=== PATIENT | male | born 1935 | race Caucasian/White ===

== ENCOUNTER 2017-09-02 10:13 | Day surgery (SDC) | payer MEDICARE, BC ==
[2017-09-02] MEDS ORDERED: PROPOFOL 10 MG/ML VIAL IV ONE (10:14)
[2017-09-02] MEDS ORDERED: FENTANYL PF 100MCG/2ML VIAL IV ONE (10:14)
[2017-09-02] MEDS ORDERED: LIDOCAINE 2% MDV (20MG/ML) 20ML VIAL IV ONE (10:14)
--- NOTE | 2017-09-03 13:50 | Operative Note ---
DATE OF SURGERY: 09/02/2017 OPERATION: ESOPHAGOGASTRODUODENOSCOPY with biopsy. INDICATION: Gastroesophageal reflux disease with "sore throat." The patient denies any dysphagia or odynophagia. He does experience intermittent coughing with eating. Upper endoscopy is performed at this time for further evaluation. ANESTHESIA: Intravenous sedation was administered by the department of anesthesiology and included Diprivan, fentanyl, and lidocaine titrated to effect. PROCEDURE: Following informed consent from this alert individual, including a discussion of the risks and benefits of the procedure and an opportunity for the patient to ask questions, the patient was in the left lateral decubitus position. The Olympus VEX132 video endoscope was inserted into the esophagus without resistance. The proximal esophagus had a normal appearance with normal folds and distensibility. The mid and distal esophagus likewise was free from changes. There were no ulcerations or erosions noted. There was a 3 cm hiatal hernia visualized without mucosal changes within. The subdiaphragmatic stomach was entered and found to be unremarkable except for some mild streak-like erythema extending approximately from the pylorus. No ulcerations or erosions were seen. Biopsies from the stomach were obtained to assess for Helicobacter pylori and check histology. The pylorus was patent. The duodenal bulb, sweep and descending duodenum were examined in a serial fashion and found to be normal. The endoscope was then withdrawn back into the body of the stomach. Retroflexion accomplished following air insufflation failed to demonstrate any additional changes. Again a hiatal hernia was noted. The endoscope was straightened and withdrawn back through the esophagus which again had a normal-appearing mucosa. The posterior pharynx likewise was free from mucosal changes. Again the scope was withdrawn. The patient tolerated the procedure well and was returned to the recovery area in stable condition. IMPRESSION: 1. A 3 cm hiatal hernia. 2. Mild linear antral gastritis, biopsies taken. RECOMMENDATION: Further recommendations will be forthcoming pending results of biopsy obtained today. The patient states that he is clinically improving with the Dexilant prescribed by Dr. Cee and I recommended that he continue on his medication at this point pending biopsies. Followup will be with Dr. Cee as well. As always, thank you for allowing me to participate in the care of your patient. CC: DO JIMMY Raines
== END 2017-09-02 12:22 | disposition home or self-care (01) ==
LOC: HOP 10:13
PROVIDERS: ATTEND Internal Medicine Gastroenterology
DX: K21.9 Gastro-esophageal reflux disease without esophagitis (principal); K44.9 Diaphragmatic hernia without obstruction or gangrene; K29.70 Gastritis, unspecified, without bleeding; I48.91 Unspecified atrial fibrillation; Z79.01 Long term (current) use of anticoagulants; E78.00 Pure hypercholesterolemia, unspecified; J45.909 Unspecified asthma, uncomplicated
CPT/HCPCS: 43235; 00731; J3010